=== PATIENT | female | born 1980 | race Caucasian/White ===

== ENCOUNTER 2020-11-29 19:03 | Emergency (ER) | payer SELFPAY ==
[~2020-11-29] VITALS: Ht 162.6 cm; Wt 72.7 kg
[2020-11-29 19:07] VITALS: BP 127/86
== END 2020-11-29 19:50 | disposition left against medical advice (07) ==
LOC: EMS 19:07
DX: F41.9 Anxiety disorder, unspecified (principal); Z53.21 Procedure and treatment not carried out due to patient leaving prior to being seen by health care provider
CPT/HCPCS: 93005